=== PATIENT | male | born 1980 | race Caucasian/White ===

== ENCOUNTER 2022-06-30 15:09 | Emergency (ER) | payer OTHER, SELFPAY ==
[2022-06-30 16:13] VITALS: BP 135/92; PULSE 88; RESP 16; TEMP 36.2; O2SAT 97; BMI 32.1
--- NOTE | 2022-06-30 20:07 | ED.GENADULT ---
HPI - General Adult General Chief complaint: Extremity Problem Stated complaint: L Arm Pain Time Seen by Provider: 06/30/22 19:57 Source: patient Limitations: no limitations History of Present Illness HPI narrative: This is a 42-year-old male who on May 27 had a COVID immunization in his left upper arm. Since then the patient has had pain that will go away. The pain is now radiating down toward his left elbow. He has some sense of tingling and slight numbness in his left wrist. He denies any weakness to his hand. He denies any fever. He has not noticed any redness or swelling. He states the pain is severe enough that he cannot sleep and he is having trouble getting his work done at his job. The patient has stated that he has tried ibuprofen and acetaminophen without relief. Related Data Previous Rx's Medication Instructions Recorded diazepam 5 mg tablet 5 mg PO TID PRN muscle spasm #10 06/30/22 tabs prednisone 20 mg tablet 40 mg PO DAILY #8 tabs 06/30/22 tramadol 50 mg tablet (Ultram) 50 - 100 mg PO Q6H PRN pain #20 06/30/22 tabs Allergies Allergy/AdvReac Type Severity Reaction Status Date / Time No Known Allergies Allergy Verified 06/30/22 16:16 Review of Systems Constitutional: Constitutional: Reports as per HPI Musculoskeletal: Comments: Left upper arm pain Integumentary/Breasts: Skin/Breast: Reports system reviewed and no additional complaints, except as docu Neurologic: Denies focal weakness Comments: Paresthesia PMFSH Social History Social History Advance Directives: No Advance Directives Information Provided: No Physical Exam ED Vital Signs: Vital Signs - 24 hr 06/30/22 16:13 Temperature 97.2 F Pulse Rate 88 Respiratory Rate 16 Blood Pressure 135/92 H Pulse Oximetry 97 Oxygen Delivery Method Room Air BMI result Body Mass Index 32.1 Const General: no acute distress Orientation/consciousness: patient oriented x3 HENMT Head: Yes normal to inspection General nose exam: Normal external nose present Mouth: moist mucous membranes Throat: Yes posterior oropharynx normal, Yes tonsils normal and Yes uvula midline Eyes Eyelids: Yes eyelids normal Conjunctivae: conjunctivae normal Pupils: Equal, round and reactive pupils present Neck Neck: Yes supple Resp Effort & Inspection: normal respiratory effort Auscultation: clear to auscultation bilaterally Cardio Rate: regular rate Rhythm: regular rhythm Heart sounds: S1 normal heart sound present, S2 normal heart sound present, no gallops, no murmurs and no rubs GI Inspection: No distended Palpation (GI): Soft to palpation and nontender Auscultation: normal bowel sounds Skin General skin exam: other (Warm and dry) Neuro General: patient oriented x3 and CN's II-XI intact bilaterally Cranial nerves: Yes Equal, round and reactive pupils present Extrem Other: Left shoulder, upper arm, elbow without any redness, swelling, point tenderness, mass, ecchymosis, or other skin change. Left hand is neurovascular intact. General: Yes no pedal edema Psych Affect: normal affect Attitude: cooperative Medical Decision Making MDM Narrative Medical decision making narrative: Patient with persistent pain as left upper arm after immunization injection a month ago. Normal physical examination. Pain seems out of proportion to likely pathology on this perhaps a nerve was directly hit and there is some residual neuropathy. Explained that this should gradually heal. Patient has been trying ibuprofen and acetaminophen. Will trial a course of steroids, as well as tramadol and Valium. Discharge Plan Discharge Clinical Impression: Arm pain, left Patient Disposition: Home, Self-Care Instructions: Arm Pain (ED) Additional Instructions: Use an ice pack off and on. Take the medications as prescribed. Follow up with her primary care physician. Return for any new or worsened symptoms. It is possible you had mild damage to a nerve with the injection, but this should heal in time. I would expect her symptoms would go away within the next few weeks. Prescriptions: New tramadol [Ultram] 50 mg tablet 50 - 100 mg PO Q6H PRN (Reason: pain) Qty: 20 0RF prednisone 20 mg tablet 40 mg PO DAILY Qty: 8 0RF diazepam 5 mg tablet 5 mg PO TID PRN (Reason: muscle spasm) Qty: 10 0RF Stand Alone Forms: Work/School Release Discharge Date/Time: 06/30/22 20:45
== END 2022-06-30 20:45 | disposition home or self-care (01) ==
PROVIDERS: Emergency Provider Emergency Medicine
DX: M79.622 Pain in left upper arm (principal)
CPT/HCPCS: 99281